=== PATIENT | female | born 1975 | race Caucasian/White ===

== ENCOUNTER → 2016-07-21 | Outpatient (CLI) | payer OTHER ==
[~2016-07-21] MED LIST: ADVAIR 100-501 EACH INH; ASPIRIN325 PO; BENZONATATE100 MG PO; CRESTOR10 MG PO; IBUPROFEN 600600 M1 PO; NOHOMEMEDICATIONS; RELENZA5 MG IH; VIVELLE-DOT1 EAC2 TRANSDERM
== END ==
LOC: RAD 15:07
DX: N64.4 Mastodynia (principal); N63 Unspecified lump in breast

== ENCOUNTER → 2016-10-03 | Outpatient (CLI) | payer OTHER | LOC: ULTRA 07:02 | DX: R10.84 Generalized abdominal pain (principal) ==

== ENCOUNTER → 2018-06-21 | Outpatient (CLI) | payer OTHER | LOC: RAD 14:58 | DX: Z12.31 Encounter for screening mammogram for malignant neoplasm of breast (principal) ==

== ENCOUNTER → 2019-12-04 | Outpatient (CLI) | payer OTHER | LOC: RAD 07:58 → BC 07:58 | PROVIDERS: ATTEND Internal Medicine | DX: Z12.31 Encounter for screening mammogram for malignant neoplasm of breast (principal); M25.552 Pain in left hip ==

== ENCOUNTER 2020-01-30 12:39 | Emergency (ER) | payer OTHER ==
[~2020-01-30] VITALS: Ht 170.2 cm; Wt 81.7 kg
[2020-01-30] MEDS ORDERED: LIPITOR40 MG PO (13:11)
[2020-01-30] MEDS ORDERED: DOXYCYCLINE 10100 MG PO (15:04)
[2020-01-30 15:13] VITALS: BP 130/76
== END 2020-01-30 15:13 | disposition home or self-care (01) ==
LOC: ER 12:39
DX: S01.151A Open bite of right eyelid and periocular area, initial encounter (principal); E78.5 Hyperlipidemia, unspecified; Z90.49 Acquired absence of other specified parts of digestive tract; Z90.710 Acquired absence of both cervix and uterus; Z79.899 Other long term (current) drug therapy; Z88.0 Allergy status to penicillin; Z88.1 Allergy status to other antibiotic agents; Z88.5 Allergy status to narcotic agent; Z88.8 Allergy status to other drugs, medicaments and biological substances; Z88.2 Allergy status to sulfonamides; Z88.7 Allergy status to serum and vaccine; Z20.3 Contact with and (suspected) exposure to rabies; W55.81XA Bitten by other mammals, initial encounter; Y93.89 Activity, other specified; Y92.89 Other specified places as the place of occurrence of the external cause; Y99.8 Other external cause status

== ENCOUNTER → 2020-02-03 | Outpatient (CLI) | payer OTHER ==
[~2020-02-03] MED LIST changes: +DOXYCYCLINE 10100 MG PO; +LIPITOR40 MG PO
== END ==
LOC: RAD 12:55
PROVIDERS: ATTEND Internal Medicine
DX: S92.331A Displaced fracture of third metatarsal bone, right foot, initial encounter for closed fracture (principal); X58.XXXA Exposure to other specified factors, initial encounter; Y93.89 Activity, other specified; Y92.89 Other specified places as the place of occurrence of the external cause; Y99.8 Other external cause status

== ENCOUNTER → 2020-11-24 | Outpatient (CLI) | payer OTHER | LOC: RAD 12:15 | PROVIDERS: ATTEND Surgery | DX: M79.671 Pain in right foot (principal); M79.89 Other specified soft tissue disorders ==